=== PATIENT | female | born 1980 | race Caucasian/White ===

== ENCOUNTER 2018-07-20 09:01 | Emergency (ER) | payer MEDICAID, OTHER ==
[~2018-07-20] VITALS: Ht 157.5 cm; Wt 75.3 kg
[~2018-07-20 09:01] MED LIST: AMOX1TAB67 PO; ERYT1OIN6 LEFT EYE; PREN1TAB17 PO
[2018-07-20 09:09] VITALS: BP 117/71; PULSE 67; RESP 18; Ht 157.5 cm; Wt 75.3 kg
[2018-07-20] MEDS ORDERED: LIDOCAINE 2% (MDV) 20 ML INJ INJ STA (09:44)
[2018-07-20] MEDS ORDERED: AMOXICILLIN/CLAV 875 MG TAB PO ONE (10:00)
[2018-07-20] MEDS ORDERED: AMOX1TAB10 PO (10:32)
--- NOTE | 2018-07-20 10:39 | ERD ---
ER Documentation Chief Complaint Chief Complaint LIP LAC FROM DOG BITE HPI This is a 38-year-old with a nonsignificant past medical history presents ED with lip laceration from dog bite that occurred earlier this morning. Patient states that her small dog was sleeping and as she was changing her young child she went to move the dog, startling him and he bit her in the face. Patient denies any pain. Does not take blood thinners. Denies tingling, numbness like sensation or loss of consciousness with this event. Denies chest pain, shortness breath and other symptoms. Tetanus up-to-date ROS All systems reviewed and are negative except as per history of present illness. Medications Home Meds Active Scripts Amoxicillin/Potassium Clav (Amox-Clav 875-125 mg Tablet) 875-125 mg Tab, 1 TAB PO BID for 10 Days, #20 TAB Prov:VERONIKA ALBERT PA-C 07/20/18 Erythromycin (Erythromycin Opth) 3.5 Gm Oint..gm., 1 APPLIC LEFT EYE BID for 7 Days, TUB Prov:HU GA MD 07/06/15 Amoxicillin-Clavulanate K* (Augmentin*) 500 Mg Tab, 500 MG PO BID for 7 Days, TAB Prov:HU GA MD 07/06/15 Reported Medications Vit-Iron Fumarate-FA ( Tablet) 1 Each Tablet, 1 EACH PO DAILY 02/24/13 Allergies Allergies: Coded Allergies: No Known Allergies (Verified Allergy, Unknown, 07/20/18) PMhx/Soc Medical and Surgical Hx: pt denies Medical Hx, pt denies Surgical Hx Hx Alcohol Use: Yes Hx Substance Use: No Hx Tobacco Use: No Physical Exam Vitals Vital Signs Date Temp Pulse Resp B/P (MAP) Pulse Ox O2 O2 Flow FiO2 Time Delivery Rate 07/20/18 98.0 67 18 117/71 98 09:09 (86) Physical Exam Const: No acute distress Head: Atraumatic Eyes: Normal Conjunctiva ENT: There is a 1-1/2 cm jagged laceration along the center lower lip that crosses the vermilion border, there is one superficial laceration along the area above upper lip, laceration does not go through lip and does not enter inside mouth Neck: Full range of motion. No meningismus. Resp: Clear to auscultation bilaterally Cardio: Regular rate and rhythm, no murmurs Neur: Awake and alert Psych: Normal Mood and Affect Results 24 hrs Current Medications Medications Dose Sig/Lakeisha Start Time Status Last (Trade) Ordered Route PRN Stop Time Admin Dose Reason Admin Lidocaine 20 ml ONCE STAT 07/20/18 DC (Xylocaine INJ 09:44 07/20/18 2% (Mdv) 20 09:46 ml) 875 mg ONCE ONCE 07/20/18 DC 07/20/18 Amoxicillin/ PO 10:00 07/20/18 09:54 Clavulanate 10:01 Potassium (Augmentin) Procedures/MDM PROCEDURES: Laceration Repair by me: Anesthesia: 1% lidocaine locally Location: Center lower lip crossing vermilion border Tendon/Joint/Nerves: No injury Foreign body: None detected after copious irrigation and exploration Technique: 4 simple Interrupted Sutures, 6-0 Ethilon Complexity: No subcutaneous sutures/mucosal repair/edge excision Post Closure Length: 1.5 cm Patient's bleeding was easily controlled in the department and there is no indication of anemia. No evidence of compartment syndrome, neurologic injury, vascular injury, open joint, tendon laceration, or foreign body. Patient is appropriate for outpatient follow up. 48 hour wound check. Scar minimization instructions given. ER COURSE: The patient was given Augmentin The medication was well tolerated and the patient reports improvement in symptoms. The patient was stable throughout ED course. I kept the patient and/or family informed of laboratory and diagnostic imaging results throughout the emergency room course. The patient was promptly evaluated and a treatment plan was devised based on H&P and other data. This plan was discussed with the patient who agreed and had no further questions or concerns prior to discharge. MEDICAL DECISION MAKIN-year-old female presents ED with lip laceration caused by dog bite that occurred earlier this morning. The lip laceration crosses the vermilion border. Due to cosmesis it was decided to do a suture to close the vermilion border. I used extreme caution and precision while repairing this laceration as I do not want patient's face to scar. Given location discussed with patient the possibility of scarring. Laceration was repaired in ED and instructions for post care were discussed. No evidence of compartment syndrome, neurologic injury, vascular injury, open joint, tendon laceration, fracture, dislocation, or foreign body. Patient's vitals are stable and pt can be managed with close out patient follow up. Advised patient to return to ED or to be seen by primary care for a 48 hour wound check. Pt will also need to return to ED or be seen by primary care provider to have sutures removed in 7 days. Return to ED with any worsening symptoms and if patient starts experiencing fever, chills, purulent drainage, warmth, swelling at laceration site this may be indications that wound has become infected and patient may need antibiotics. DISPOSITION PLAN: We discussed follow up with the patient's primary care doctor within 24 to 48 hours. Patient counseled regarding my diagnostic impression and care plan. Prior to discharge all questions answered. Pt agrees with treatment plan and understands strict return precautions. Precautionary instructions provided including instructions to return to the ER if not improving or for any worsening or changing symptoms or concerns. SPECIALIST FOLLOW UP RECOMMENDED: None Patient has been advised to follow up with primary care in 1-2 days. Disclaimer: Inadvertent spelling and grammatical errors are likely due to EHR/ dictation software use and do not reflect on the overall quality of patient care. Also, please note that the electronic time recorded on this note does not necessarily reflect the actual time of the patient encounter. Departure Diagnosis: Primary Impression: Lip laceration Encounter type: initial encounter Qualified Codes: S01.511A - Laceration without foreign body of lip, initial encounter Additional Impression: Dog bite Encounter type: initial encounter Qualified Codes: W54.0XXA - Bitten by dog, initial encounter Condition: Stable Patient Instructions: Laceration, Lip/Mouth Referrals: [facility] YOU HAVE RECEIVED A MEDICAL SCREENING EXAM AND THE RESULTS INDICATE THAT YOU DO NOT HAVE A CONDITION THAT REQUIRES URGENT TREATMENT IN THE EMERGENCY DEPARTMENT. FURTHER EVALUATION AND TREATMENT OF YOUR CONDITION CAN WAIT UNTIL YOU ARE SEEN IN YOUR DOCTORS OFFICE WITHIN THE NEXT 1-2 DAYS. IT IS YOUR RESPONSIBILITY TO MAKE AN APPOINTMENT FOR FOLOW-UP CARE. IF YOU HAVE A PRIMARY DOCTOR --you should call your primary doctor and schedule an appointment IF YOU DO NOT HAVE A PRIMARY DOCTOR YOU CAN CALL OUR PHYSICIAN REFERRAL HOTLINE AT IF YOU CAN NOT AFFORD TO SEE A PHYSICIAN YOU CAN CHOSE FROM THE FOLLOWING [facility] [address] [facility] [address] [facility] [address] [facility] [address] [facility] [address] [facility]. [facility] [address] Additional Instructions: Be seen by primary care physician or return to ER in 2 days for wound check. Return in 7 days to have sutures removed. Patient advised to return to the ED immediately for new or worsening symptoms. Patient advised to follow up with primary care provider in the next 24-48 hours. Patient verbalized understanding and agrees with treatment plan and course of action. If patient has no primary care they may follow up with one of the community clinics listed on the following page or one of the options listed below [facility] [address] [place] [id number] or [facility] [address] [place] [address] or [facility] [address] [place] [address] VERONIKA ALBERT PA-C Jul 20, 2018 10:39
== END 2018-07-20 11:36 | disposition home or self-care (01) ==
LOC: FTE 09:01
DX: S01.511A Laceration without foreign body of lip, initial encounter (principal); W54.0XXA Bitten by dog, initial encounter; Y92.9 Unspecified place or not applicable